=== PATIENT | male | born 1990 | race Caucasian/White ===

== ENCOUNTER 2017-08-27 15:35 | Emergency (ER) | payer OTHER ==
[~2017-08-27] VITALS: Ht 170.2 cm; Wt 101.6 kg
[2017-08-27 15:47] VITALS: Ht 170.2 cm; Wt 101.6 kg
[2017-08-27 16:57] VITALS: BP 142/71
== END 2017-08-27 16:55 | disposition home or self-care (01) ==
LOC: ED 15:35
DX: S62.610A Displaced fracture of proximal phalanx of right index finger, initial encounter for closed fracture (principal); W21.03XA Struck by baseball, initial encounter; Y93.64 Activity, baseball; Y92.89 Other specified places as the place of occurrence of the external cause; Y99.8 Other external cause status
CPT/HCPCS: 90715; Q0092